=== PATIENT | female | born 2000 | race Caucasian/White ===

== ENCOUNTER 2021-05-18 07:17 | Inpatient (IN) ==
[2021-05-18] MEDS ORDERED: OXYTOCIN 30 UNITS/500 ML BAG IV PRN ×2 (11:47)
--- NOTE | 2021-05-18 11:53 | History & Physical Report ---
Date of Service May 18, 2021 Assessment & Plan (1) Supervision of normal first : Plan: Admit to L&D negative-pressure room. EFM/toco/labs. IV. OK for epidural when she desires. Discussed COVID+ test. Admission and Anticipated Discharge Date Admission Date: May 18, 2021 History of Present Illness Chief Complaint: IOL Primary Care Provider: [facility] PCP 21yo @ 41 06/28, here for IOL for postdates. Incidental finding of COVID+ on today's admission swab. Has not had symptoms, however states she had what felt like a bit of a cold last Monday for one day, did not take meds. Not vaccinated. complicated by +chlamydia, treated, then 36w retest was negative. White bulb placed last night. Allergies Allergy/AdvReac Type Severity Reaction Status Date / Time No Known Allergies Allergy Verified 05/17/21 15:05 Home Medications Medication Instructions Recorded Confirmed Type vit no.133-ferrous 1 tab PO DAILY 09/16/20 05/18/21 History fumarate 28 mg-folic acid 800 mcg tablet () Patient History Medical History History of chicken pox Ovarian cyst Varicella vaccination Surgical History No history of previous surgery Family History Mother Breast cancer Aunt Breast cancer Grandmother (Paternal) Ovarian cancer Denies family history of Prostate cancer Myocardial infarction Colorectal cancer Social History Smoking Status: Former smoker Second Hand Exposure: No; Do You Dip or Chew Tobacco: No; Hx Alcohol Use: No Hx Substance Use: No Preferred Language: Slovak Communication Ability: Effective Surgical Scrub Tech Required: No Beliefs That Will Affect Care: None marital status: Single marital status details: Junior Jackson (22) [phone] Current Living Situation: Significant Other and Other Current Living Situation Comment: Lives with significant other his mom and moms boyfriend current occupational status: employed current occupation: [employer] Feels Safe at Home: Yes Safety Concerns: Feels Safe At This Time Assistive Devices: None Review of Systems All systems reviewed & are unremarkable except as noted in HPI & below Physical Exam Physical Exam: SVE 4/50/-2, cephalic Constitutional: WD/WN, vitals as above Respiratory: normal respiratory effort, lungs clear to auscultation no respiratory distress Cardiovascular: Rate/Rhythm: regular rate and regular rhythm Gastrointestinal (Abdomen): Inspection/Auscultation: abdomen normal to inspection Percussion/Palpation: abdomen soft; abdomen nontender Gravid. No s/s chorio or abruption. Skin: no rashes, warm and dry Psychiatric: A+Ox3, euthymic affect Results & Data ([facility]) Vital Signs (Past 12 Hours) Vital Signs Temp Pulse Resp BP 05/18/21 08:17 98 H 127/71 05/18/21 08:05 36.6 C 137 H 18 117/65 05/18/21 07:57 137 H 117/65 Coding Level of Care Code None Diagnoses Supervision of normal first Z34.00
[2021-05-18] MEDS ORDERED: PENICILLIN G POTASSIUM 6 MU in DEXTROSE 5% 250 ML IV STA (11:56)
[2021-05-18 12:21] LABS: Hemoglobin 12.4 g/dL (12.0-16.0); Mean Corpuscular Hemoglobin 32.5 pg (25-34); Mean Corpuscular Hgb Conc 34.4 g/dL (32-36); Mean Corpuscular Volume 94.2 fL (80-100); Mean Platelet Volume 11.8 fL (7.4-10.4); Platelet Count 227 K/uL (130-400); RDW Coefficient of Variation 12.8 % (11.5-14.5); RDW Standard Deviation 44.3 fL (36.4-46.3); Red Blood Count 3.82 M/uL (4.2-5.4); White Blood Count 15.47 K/uL (4.8-10.8)
[2021-05-18] MEDS: LACTATED RINGER'S 1,000 ML IV PRN ×2 (12:32→16:30)
[2021-05-18] MEDS ORDERED: ePHEDrine sulfate 50 MG/ML AMP ONE (15:48)
[2021-05-18] MEDS ORDERED: fentaNYL citrate 100 MCG/2 ML VIAL ONE (15:49)
[2021-05-18] MEDS ORDERED: SODIUM CHLORIDE 0.9% INJ 10 ML VIAL ONE (15:49)
[2021-05-18] MEDS ORDERED: BUPIVACAINE 0.25% 30 ML VIAL ONE (15:49)
[2021-05-18] MEDS ORDERED: fentaNYL 2MCG/ML ROPIVACAINE 1.25MG/ML 100 ML BAG EPI ONE (15:49)
[2021-05-18] MEDS ORDERED: fentaNYL 2MCG/ML ROPIVACAINE 1.25MG/ML 100 ML BAG EPI PRN (16:02)
[2021-05-18] MEDS ORDERED: diphenhydrAMINE 50 MG/ML VIAL IV PRN (16:02)
[2021-05-18] MEDS ORDERED: ePHEDrine sulfate 50 MG/ML AMP IV PRN (16:02)
[2021-05-18] MEDS ORDERED: NALBUPHINE HCL INJ 10 MG/ML AMP IV PRN (16:02)
[2021-05-18] MEDS ORDERED: NALOXONE HCL 0.4 MG/1 ML VIAL/CARP IV PRN (16:02)
[2021-05-18] MEDS ORDERED: NALOXONE HCL 1 MG in SODIUM CHLORIDE 0.9% 1000ML 1,000 ML IV PRN (16:02)
[2021-05-18] MEDS ORDERED: ONDANSETRON INJ 2 MG/ML 2 ML VIAL IV PRN (16:02)
--- NOTE | 2021-05-18 16:03 | Anesthesiology Consultation ---
Date of Service May 18, 2021 Assessment & Plan (1) Encounter for pre-operative examination: Chart Review Chart Review: Patient NOT seen in Pre Admission Testing and Acceptable Risk for Labor Epidural Consults Requested none History Height/Weight Height: 5 ft 3 in Weight: 91.626 kg Allergies Allergy/AdvReac Type Severity Reaction Status Date / Time No Known Allergies Allergy Verified 05/17/21 15:05 Medications Home Medications Medication Instructions Recorded Confirmed Last Taken vit no.133-ferrous 1 tab PO DAILY 09/16/20 05/18/21 05/16/21 08:00 fumarate 28 mg-folic acid 800 mcg tablet () Active Medications Generic Name Dose Route Start Last Admin Trade Name Freq PRN Reason Stop Dose Admin Lactated Ringer's 1,000 mls @ 125 mls/hr 05/18/21 11:47 05/18/21 16:30 Lr IV 05/20/21 11:46 125 mls/hr .Q8H PRN Administration L&D Protocol Protocol Oxytocin 30 units in 500 mls @ 7 mls/hr 05/18/21 11:47 05/18/21 15:40 Pitocin IV 05/20/21 11:46 0.42 units/hr .Q24H PRN 7 mls/hr Labor Induction/Augmentation Titration Protocol 0.42 UNITS/HR Past Medical History Medical History History of chicken pox Ovarian cyst Varicella vaccination Exercise / Class Metabolic Activity II 4-5 Yardwork/Stairs/Walk up hill Past Family History Family History Mother Breast cancer Aunt Breast cancer Grandmother (Paternal) Ovarian cancer Denies family history of Prostate cancer Myocardial infarction Colorectal cancer Past Surgical History Surgical History No history of previous surgery Past Anesthesia History No Hx of Anesthesia Complications and No Family Hx of Anesthesia Complications History of PONV No Hx of PONV and No Hx of Motion Sickness Social History Smoking Status: Former smoker tobacco type: cigarettes Do You Dip or Chew Tobacco: No Hx Alcohol Use: No Hx Substance Use: No substance use type: does not use Physical Exam Vital Signs Last Vital Signs Temp 36.7 C 05/18/21 15:06 Pulse 93 H 05/18/21 16:57 Resp 18 05/18/21 15:06 BP 112/57 L 05/18/21 16:57 Pulse Ox 98 05/18/21 16:56 Testing Laboratory Results 05/18/21 12:01
--- NOTE | 2021-05-18 16:59 | Labor Progress Brief Note ---
Date of Service May 18, 2021 Subjective Comfortable with epidural. AROM Clear fluid. SVE 4/50/-2 Continue IOL Assessment & Plan Admission and Anticipated Discharge Date Admission Date: May 18, 2021 Results & Data ([facility]) Vital Signs (Past 12 Hours) Vital Signs Temp Pulse Resp BP Pulse Ox 05/18/21 16:57 93 H 112/57 L 05/18/21 16:56 87 98 05/18/21 16:54 96 H 135/64 05/18/21 16:51 83 99 05/18/21 16:46 106 H 99 05/18/21 16:44 76 114/58 L 05/18/21 16:41 118 H 98 05/18/21 16:40 126 H 107/63 05/18/21 16:37 107 H 117/59 L 05/18/21 16:36 88 116/63 98 05/18/21 16:33 102 H 107/58 L 05/18/21 16:32 97 H 113/57 L 05/18/21 16:31 107 H 98 05/18/21 16:29 90 129/73 05/18/21 16:28 93 H 121/67 05/18/21 16:26 95 H 126/77 99 05/18/21 16:21 102 H 98 05/18/21 16:16 105 H 98 05/18/21 16:11 93 H 95 05/18/21 16:06 87 98 05/18/21 15:40 81 118/71 05/18/21 15:06 36.7 C 18 05/18/21 14:19 85 128/76 05/18/21 11:59 86 113/58 L 05/18/21 11:58 36.7 C 18 05/18/21 08:17 98 H 127/71 05/18/21 08:05 36.6 C 137 H 18 117/65 05/18/21 07:57 137 H 117/65 Coding Level of Care Code None
[2021-05-18] MEDS: PENICILLIN G POTASSIUM 3 MU in DEXTROSE 5% 100 ML IV PRN ×2 (17:41→21:41)
[2021-05-18] MEDS ORDERED: NURSING L&D Epidural Breakthrough Pain Update ONE (21:57)
[2021-05-18] MEDS ORDERED: LIDOCAINE 2%/EPINEPHRINE 1:200,000 20 ML SDV ONE (22:04)
--- NOTE | 2021-05-18 22:23 | Communication Note ---
Date of Service: May 18, 2021 bolused 4ml of 2% lido mixed with 4ml 0.5% ropivicaine. pt on monitor. vss. pain much improved.
--- NOTE | 2021-05-18 23:29 | Labor Progress Brief Note ---
Date of Service May 18, 2021 Subjective Comfortable with redose of epidural. FHT Cat 1 [place] Q 2-3 IUPC placed. Pit at 19. SVE /-2 Assessment & Plan Admission and Anticipated Discharge Date Admission Date: May 18, 2021 Results & Data ([facility]) Vital Signs (Past 12 Hours) Vital Signs Temp Pulse Resp BP Pulse Ox 05/18/21 23:26 90 113/56 L 98 05/18/21 23:21 116 H 97 05/18/21 23:16 112 H 98 05/18/21 23:11 101 H 98 05/18/21 23:10 90 118/77 05/18/21 23:06 97 H 96 05/18/21 23:01 88 96 05/18/21 23:00 36.8 C 18 05/18/21 22:56 91 H 97 05/18/21 22:55 88 114/77 05/18/21 22:51 93 H 97 05/18/21 22:46 130 H 97 05/18/21 22:41 121 H 97 05/18/21 22:40 122 H 121/80 05/18/21 22:36 113 H 98 05/18/21 22:31 92 H 98 05/18/21 22:26 84 97 05/18/21 22:25 86 113/78 05/18/21 22:21 91 H 97 05/18/21 22:19 96 H 119/81 05/18/21 22:17 80 113/77 05/18/21 22:16 100 H 96 05/18/21 22:15 85 119/79 05/18/21 22:13 96 H 115/76 05/18/21 22:11 79 123/77 97 05/18/21 22:06 86 97 05/18/21 22:01 83 97 05/18/21 22:00 18 05/18/21 21:58 83 127/69 05/18/21 21:56 80 98 05/18/21 21:51 85 97 05/18/21 21:46 91 H 97 05/18/21 21:42 86 131/71 05/18/21 21:41 85 97 05/18/21 21:36 81 96 05/18/21 21:31 69 95 05/18/21 21:30 18 05/18/21 21:26 88 120/67 96 05/18/21 21:21 84 96 05/18/21 21:16 88 96 05/18/21 21:12 83 120/64 05/18/21 21:11 83 95 05/18/21 21:08 93 H 94 05/18/21 21:06 82 95 05/18/21 21:03 84 94 05/18/21 21:01 93 H 93 05/18/21 21:00 36.9 C 18 05/18/21 20:57 84 94 05/18/21 20:56 82 114/60 95 05/18/21 20:52 73 94 05/18/21 20:51 82 95 05/18/21 20:46 70 95 05/18/21 20:43 83 126/67 05/18/21 20:41 87 95 05/18/21 20:36 80 96 05/18/21 20:31 85 95 05/18/21 20:30 18 05/18/21 20:27 86 115/62 05/18/21 20:26 87 97 05/18/21 20:21 100 H 95 05/18/21 20:16 80 95 05/18/21 20:11 86 119/68 95 05/18/21 20:06 89 96 05/18/21 20:01 82 96 05/18/21 20:00 18 05/18/21 19:58 84 113/66 05/18/21 19:56 85 96 05/18/21 19:52 89 94 05/18/21 19:51 81 95 05/18/21 19:46 85 97 05/18/21 19:42 78 107/56 L 05/18/21 19:41 73 97 05/18/21 19:36 91 H 98 05/18/21 19:31 89 96 05/18/21 19:30 18 05/18/21 19:27 81 123/65 05/18/21 19:26 88 97 05/18/21 19:21 86 97 05/18/21 19:16 73 97 05/18/21 19:12 77 112/69 05/18/21 19:11 77 98 05/18/21 19:06 83 97 05/18/21 19:05 36.9 C 18 05/18/21 19:01 91 H 97 05/18/21 19:00 18 05/18/21 18:58 87 117/68 05/18/21 18:56 84 97 05/18/21 18:51 86 97 05/18/21 18:46 93 H 97 05/18/21 18:45 18 05/18/21 18:42 86 133/77 05/18/21 18:41 88 97 05/18/21 18:36 91 H 97 05/18/21 18:31 90 96 05/18/21 18:27 81 127/64 05/18/21 18:26 85 97 05/18/21 18:21 91 H 97 05/18/21 18:16 80 97 05/18/21 18:12 83 133/62 05/18/21 18:11 83 98 05/18/21 18:06 36.8 C 90 97 05/18/21 18:01 88 97 05/18/21 18:00 18 05/18/21 17:58 81 133/71 05/18/21 17:56 100 H 97 05/18/21 17:51 89 97 05/18/21 17:46 104 H 98 05/18/21 17:41 88 112/63 97 05/18/21 17:37 88 119/84 05/18/21 17:36 85 97 05/18/21 17:33 85 116/78 05/18/21 17:31 66 98 05/18/21 17:29 82 117/79 05/18/21 17:26 80 98 05/18/21 17:25 91 H 126/77 05/18/21 17:21 82 120/76 98 05/18/21 17:18 96 H 123/91 05/18/21 17:16 70 97 05/18/21 17:15 18 05/18/21 17:13 78 105/79 05/18/21 17:11 96 H 98 05/18/21 17:09 102 H 109/68 05/18/21 17:06 85 110/60 98 05/18/21 17:02 88 118/56 L 05/18/21 17:01 97 H 99 05/18/21 17:00 18 05/18/21 16:57 93 H 112/57 L 05/18/21 16:56 87 98 05/18/21 16:54 96 H 135/64 05/18/21 16:51 83 99 01/25/22 16:46 106 H 99 05/18/21 16:45 18 05/18/21 16:44 76 114/58 L 05/18/21 16:41 118 H 98 05/18/21 16:40 126 H 107/63 05/18/21 16:37 107 H 117/59 L 05/18/21 16:36 88 116/63 98 05/18/21 16:33 102 H 107/58 L 05/18/21 16:32 97 H 113/57 L 05/18/21 16:31 107 H 98 05/18/21 16:30 18 05/18/21 16:29 90 129/73 05/18/21 16:28 93 H 121/67 05/18/21 16:26 95 H 126/77 99 05/18/21 16:21 102 H 98 05/18/21 16:16 105 H 98 05/18/21 16:11 93 H 95 05/18/21 16:06 87 98 05/18/21 15:40 81 118/71 05/18/21 15:06 36.7 C 18 05/18/21 14:19 85 128/76 05/18/21 11:59 86 113/58 L 05/18/21 11:58 36.7 C 18 Coding Level of Care Code None
[2021-05-19] MEDS: PENICILLIN G POTASSIUM 3 MU in DEXTROSE 5% 100 ML IV PRN (01:11)
[2021-05-19] MEDS: LACTATED RINGER'S 1,000 ML IV PRN (01:43)
--- NOTE | 2021-05-19 03:31 | Labor Progress Brief Note ---
Date of Service May 19, 2021 Subjective Patient comfortable with epidural. FHT category 3 tracing - not responsive to resuscitative measures. She is having recurrent late decelerations. [place] Q 2 SVE 5/90/-2, moulding of head Given Cat 3 tracing and remote from delivery, I recommended that we proceed to section. Patient is agreeable. Assessment & Plan Admission and Anticipated Discharge Date Admission Date: May 18, 2021 Results & Data ([facility]) Vital Signs (Past 12 Hours) Vital Signs Temp Pulse Resp BP Pulse Ox 05/19/21 03:26 135 H 99 05/19/21 03:21 122 H 99 05/19/21 03:19 107 H 115/73 05/19/21 03:16 96 H 97 05/19/21 03:11 94 H 97 05/19/21 03:06 94 H 97 05/19/21 03:03 95 H 112/59 L 05/19/21 03:01 98 H 97 05/19/21 03:00 18 05/19/21 02:56 95 H 97 05/19/21 02:51 94 H 97 05/19/21 02:49 95 H 107/59 L 05/19/21 02:46 96 H 97 05/19/21 02:41 95 H 97 05/19/21 02:36 99 H 97 05/19/21 02:33 98 H 105/59 L 05/19/21 02:31 96 H 97 05/19/21 02:30 18 05/19/21 02:26 101 H 98 05/19/21 02:21 102 H 98 05/19/21 02:18 97 H 109/65 05/19/21 02:16 103 H 98 05/19/21 02:11 102 H 98 05/19/21 02:06 98 H 98 05/19/21 02:03 96 H 107/63 05/19/21 02:01 97 H 111/67 99 05/19/21 02:00 37.1 C 18 05/19/21 01:59 96 H 113/68 05/19/21 01:57 93 H 113/70 05/19/21 01:56 90 99 05/19/21 01:55 90 112/66 05/19/21 01:53 89 110/67 05/19/21 01:51 88 99 05/19/21 01:46 88 100 05/19/21 01:41 93 H 115/74 96 05/19/21 01:36 98 H 98 05/19/21 01:31 96 H 96 05/19/21 01:30 18 05/19/21 01:26 95 H 95 05/19/21 01:25 93 H 119/71 05/19/21 01:21 103 H 95 05/19/21 01:16 98 H 93 05/19/21 01:11 93 H 100/59 L 94 05/19/21 01:10 104 H 94 05/19/21 01:06 96 H 92 05/19/21 01:05 102 H 94 05/19/21 01:01 37.1 C 96 H 92 05/19/21 01:00 18 05/19/21 00:56 90 91 05/19/21 00:55 104 H 116/59 L 05/19/21 00:51 99 H 93 05/19/21 00:46 92 H 93 05/19/21 00:41 104 H 94 05/19/21 00:40 106 H 110/63 05/19/21 00:36 103 H 94 05/19/21 00:31 100 H 94 05/19/21 00:30 18 05/19/21 00:26 106 H 94 05/19/21 00:25 97 H 110/64 05/19/21 00:21 96 H 94 05/19/21 00:16 91 H 95 05/19/21 00:15 98 H 94 05/19/21 00:11 92 H 113/68 96 05/19/21 00:06 92 H 97 05/19/21 00:01 88 96 05/19/21 00:00 18 05/18/21 23:56 87 96 05/18/21 23:55 90 117/74 05/18/21 23:51 87 96 05/18/21 23:46 91 H 97 05/18/21 23:41 85 97 05/18/21 23:40 101 H 111/73 05/18/21 23:36 80 96 05/18/21 23:31 71 97 05/18/21 23:26 90 113/56 L 98 05/18/21 23:21 116 H 97 05/18/21 23:16 112 H 98 05/18/21 23:11 101 H 98 05/18/21 23:10 90 118/77 05/18/21 23:06 97 H 96 05/18/21 23:01 88 96 05/18/21 23:00 36.8 C 18 05/18/21 22:56 91 H 97 05/18/21 22:55 88 114/77 05/18/21 22:51 93 H 97 05/18/21 22:46 130 H 97 05/18/21 22:41 121 H 97 05/18/21 22:40 122 H 121/80 05/18/21 22:36 113 H 98 05/18/21 22:31 92 H 98 05/18/21 22:26 84 97 05/18/21 22:25 86 113/78 05/18/21 22:21 91 H 97 05/18/21 22:19 96 H 119/81 05/18/21 22:17 80 113/77 05/18/21 22:16 100 H 96 05/18/21 22:15 85 119/79 05/18/21 22:13 96 H 115/76 05/18/21 22:11 79 123/77 97 05/18/21 22:06 86 97 05/18/21 22:01 83 97 05/18/21 22:00 18 05/18/21 21:58 83 127/69 05/18/21 21:56 80 98 05/18/21 21:51 85 97 05/18/21 21:46 91 H 97 05/18/21 21:42 86 131/71 05/18/21 21:41 85 97 05/18/21 21:36 81 96 05/18/21 21:31 69 95 05/18/21 21:30 18 05/18/21 21:26 88 120/67 96 05/18/21 21:21 84 96 05/18/21 21:16 88 96 05/18/21 21:12 83 120/64 05/18/21 21:11 83 95 05/18/21 21:08 93 H 94 05/18/21 21:06 82 95 05/18/21 21:03 84 94 05/18/21 21:01 93 H 93 05/18/21 21:00 36.9 C 18 05/18/21 20:57 84 94 05/18/21 20:56 82 114/60 95 05/18/21 20:52 73 94 05/18/21 20:51 82 95 05/18/21 20:46 70 95 05/18/21 20:43 83 126/67 05/18/21 20:41 87 95 05/18/21 20:36 80 96 05/18/21 20:31 85 95 05/18/21 20:30 18 05/18/21 20:27 86 115/62 05/18/21 20:26 87 97 05/18/21 20:21 100 H 95 05/18/21 20:16 80 95 05/18/21 20:11 86 119/68 95 05/18/21 20:06 89 96 05/18/21 20:01 82 96 05/18/21 20:00 18 05/18/21 19:58 84 113/66 05/18/21 19:56 85 96 05/18/21 19:52 89 94 05/18/21 19:51 81 95 05/18/21 19:46 85 97 05/18/21 19:42 78 107/56 L 05/18/21 19:41 73 97 05/18/21 19:36 91 H 98 05/18/21 19:31 89 96 05/18/21 19:30 18 05/18/21 19:27 81 123/65 05/18/21 19:26 88 97 05/18/21 19:21 86 97 05/18/21 19:16 73 97 05/18/21 19:12 77 112/69 05/18/21 19:11 77 98 05/18/21 19:06 83 97 05/18/21 19:05 36.9 C 18 05/18/21 19:01 91 H 97 05/18/21 19:00 18 05/18/21 18:58 87 117/68 05/18/21 18:56 84 97 05/18/21 18:51 86 97 05/18/21 18:46 93 H 97 05/18/21 18:45 18 05/18/21 18:42 86 133/77 05/18/21 18:41 88 97 05/18/21 18:36 91 H 97 05/18/21 18:31 90 96 05/18/21 18:27 81 127/64 05/18/21 18:26 85 97 05/18/21 18:21 91 H 97 05/18/21 18:16 80 97 05/18/21 18:12 83 133/62 05/18/21 18:11 83 98 05/18/21 18:06 36.8 C 90 97 05/18/21 18:01 88 97 05/18/21 18:00 18 05/18/21 17:58 81 133/71 05/18/21 17:56 100 H 97 05/18/21 17:51 89 97 05/18/21 17:46 104 H 98 05/18/21 17:41 88 112/63 97 05/18/21 17:37 88 119/84 05/18/21 17:36 85 97 05/18/21 17:33 85 116/78 05/18/21 17:31 66 98 05/18/21 17:29 82 117/79 05/18/21 17:26 80 98 05/18/21 17:25 91 H 126/77 05/18/21 17:21 82 120/76 98 05/18/21 17:18 96 H 123/91 05/18/21 17:16 70 97 05/18/21 17:15 18 05/18/21 17:13 78 105/79 05/18/21 17:11 96 H 98 05/18/21 17:09 102 H 109/68 05/18/21 17:06 85 110/60 98 05/18/21 17:02 88 118/56 L 05/18/21 17:01 97 H 99 05/18/21 17:00 18 05/18/21 16:57 93 H 112/57 L 05/18/21 16:56 87 98 05/18/21 16:54 96 H 135/64 05/18/21 16:51 83 99 05/18/21 16:46 106 H 99 05/18/21 16:45 18 05/18/21 16:44 76 114/58 L 05/18/21 16:41 118 H 98 05/18/21 16:40 126 H 107/63 05/18/21 16:37 107 H 117/59 L 05/18/21 16:36 88 116/63 98 05/18/21 16:33 102 H 107/58 L 05/18/21 16:32 97 H 113/57 L 05/18/21 16:31 107 H 98 05/18/21 16:30 18 05/18/21 16:29 90 129/73 05/18/21 16:28 93 H 121/67 05/18/21 16:26 95 H 126/77 99 05/18/21 16:21 102 H 98 05/18/21 16:16 105 H 98 05/18/21 16:11 93 H 95 05/18/21 16:06 87 98 05/18/21 15:40 81 118/71 Coding Level of Care Code None
--- NOTE | 2021-05-19 03:32 | History & Physical Bridge Note ---
Date of Service May 19, 2021 History & Physical Bridge Note I have examined the patient, reviewed the History & Physical and in the interval since the performance of the History & Physical I have noted the following changes of clinical significance: I have discussed consent with patient for section. Questions answered, informed consent obtained. Will proceed to OR for section for nonreassuring heart tracing.
[2021-05-19] MEDS ORDERED: LACTATED RINGER'S 1,000 ML IV SCH ×2 (03:45→06:08)
[2021-05-19] MEDS ORDERED: PHENYLEPHRINE 100MCG/ML 5ML SYR ONE (03:56)
[2021-05-19] MEDS ORDERED: ONDANSETRON INJ 2 MG/ML 2 ML VIAL ONE (03:56)
[2021-05-19] MEDS ORDERED: OXYTOCIN 10 UNITS/ML 10ML VIAL ONE (03:56)
[2021-05-19] MEDS ORDERED: LIDOCAINE 2%/EPINEPHRINE 1:200,000 20 ML SDV ONE (03:56)
[2021-05-19] MEDS ORDERED: ePHEDrine sulfate 50 MG/ML SYR ONE (03:56)
[2021-05-19] MEDS ORDERED: CITRIC ACID/SODIUM CITRATE 15 ML UDC ONE (03:58)
[2021-05-19] MEDS ORDERED: MoRPHine SULFATE PF 1 MG/ML 10 ML AMP/VIAL ONE (03:59)
[2021-05-19] MEDS ORDERED: KETAMINE 50 MG/5 ML SYRINGE ONE (04:02)
[2021-05-19] MEDS ORDERED: MIDAZOLAM HCL 1 MG/ML 2ML VIAL ONE (04:02)
--- NOTE | 2021-05-19 05:52 | Operative Report ---
PG Post Operative Report Pre & Post Diagnosis Operation Date: 05/19/21 03:50 Pre: Nonreassuring heart tracing Post: same I identified the patient and participated in the time-out.: Yes Procedure Operation Date: 05/19/21 03:50 Primary low transverse section Surgeon Beatriz Choi, DO Cooperative Manager Chyna Nagy RN Estimated Blood Loss 750 Findings Consistent with Post-Op Diagnosis Viable male , apgars/weight pending - please see nursery charting. Normal appearing uterus, tubes, ovaries. Specimens placenta, cord blood, cord gas Drains ortega clear yellow Anesthesia Type Labor Epidural Complications none Disposition Accompanied Patient To Recovery: No Disposition: Recovery Room Indications 21yo @ 40 4/7, undergoing IOL for postdates , developed nonreassuring heart tracing with recurrent late decelerations nonresponsive to resuscitative measures. Cervix at that time still 5cm, remote from delivery. Description of Procedure The patient was seen in her labor and delivery room, risks benefits and alternatives to surgery were reviewed. Informed consent obtained. Questions were answered. She was taken to the operating room, spinal anesthesia was administered. She was then prepared and draped in the usual sterile fashion in the supine position with a leftward tilt. Timeout was confirmed. A Pfannenstiel skin incision was made with a scalpel, and carried through to the underlying layer of fascia. Fascia was nicked at midline, and this incision was extended bilaterally. The superior aspect of the fascial incision was grasped with Florin clamps x2, elevated off the underlying rectus abdominis muscles, and dissected sharply and bluntly. In similar fashion, the inferior aspect of the fascial incision was dissected. The rectus abdominis muscles were , and the peritoneum was entered bluntly digitally. This was extended bilaterally. The bladder flap was taken down carefully using Metzenbaum scissors. Using a new scalpel, a low transverse uterine incision was created. Meconium stained amniotic fluid noted. The infant was delivered from a cephalic presentation. The head delivered, followed by shoulders and body. The cord was doubly clamped and cut, and the was handed off to the waiting language interpreter. A segment was retained for cord gases. Cord blood was obtained. The placenta was delivered spontaneously intact. The uterus was exteriorized, and cleared of all clots and debris. The hysterotomy incision was reapproximated using 0 Vicryl in a running locked stitch. A second layer of the same suture was used to imbricate the incision. Posterior uterus was evaluated and normal. The uterus was returned to the abdomen, and gutters were cleared of clots and debris. Excellent hemostasis was observed. The fascial incision was reapproximated using 0 Vicryl in a running stitch. The subcutaneous tissue was irrigated, and reapproximated using 2-0 plain gut in a running stitch. The skin was reapproximated using 4-0 Vicryl in a running subcuticular stitch. Steri-Strips and a bandage were applied. The patient tolerated the procedure well, and will be taken to the recovery area in stable and good condition. Instrument/sponge/needle count correct x 2. I attest to the content of the Intraoperative Record and any orders documented therein. Any exceptions are noted below. OB Procedure Charges 14476
--- NOTE | 2021-05-19 05:59 | Anesthesia Procedure Note ---
Date of Service May 19, 2021 Anesthesia Post Epidural Note Vital Signs Vital Signs: Temp Pulse Resp BP Pulse Ox 37.1 C 99 H 20 111/64 98 05/19/21 02:00 05/19/21 04:11 05/19/21 03:30 05/19/21 04:03 05/19/21 04:11 Pain Intensity Bilateral Abdomen: Pain Intensity: 6 Notes Mental Status: alert / awake / arousable and participated in evaluation Patient Amnestic to Procedure: No Nausea / Vomiting: adequately controlled Pain: adequately controlled Airway Patency, RR, SpO2: stable & adequate BP & HR: stable & adequate Hydration State: stable & adequate Neuraxial Anesthesia: was administered and sensory block is resolving Anesthetic Complications: no major complications apparent and Pt Satisfied with anesthetic care Epidural: Removed without complications and With tip intact
--- NOTE | 2021-05-19 05:59 | Anesthesiology Progress Note ---
Date of Service May 19, 2021 Anesthesia Post Procedure Vital Signs Vital Signs: Temp Pulse Resp BP Pulse Ox 05/19/21 04:11 99 H 98 05/19/21 04:06 95 H 97 05/19/21 04:03 100 H 111/64 05/19/21 04:01 104 H 98 05/19/21 03:57 110 H 93 05/19/21 03:56 107 H 98 05/19/21 03:51 106 H 97 05/19/21 03:48 115 H 102/68 05/19/21 03:46 106 H 98 05/19/21 03:41 119 H 97 05/19/21 03:36 120 H 100 05/19/21 03:33 114 H 108/70 05/19/21 03:31 132 H 100 05/19/21 03:30 20 05/19/21 03:26 135 H 99 05/19/21 03:21 122 H 99 05/19/21 03:19 107 H 115/73 05/19/21 03:16 96 H 97 05/19/21 03:11 94 H 97 05/19/21 03:06 94 H 97 05/19/21 03:03 95 H 112/59 L 05/19/21 03:01 98 H 97 05/19/21 03:00 18 05/19/21 02:56 95 H 97 05/19/21 02:51 94 H 97 05/19/21 02:49 95 H 107/59 L 05/19/21 02:46 96 H 97 05/19/21 02:41 95 H 97 05/19/21 02:36 99 H 97 05/19/21 02:33 98 H 105/59 L 05/19/21 02:31 96 H 97 05/19/21 02:30 18 05/19/21 02:26 101 H 98 05/19/21 02:21 102 H 98 05/19/21 02:18 97 H 109/65 05/19/21 02:16 103 H 98 05/19/21 02:11 102 H 98 05/19/21 02:06 98 H 98 05/19/21 02:03 96 H 107/63 05/19/21 02:01 97 H 111/67 99 05/19/21 02:00 37.1 C 18 05/19/21 01:59 96 H 113/68 05/19/21 01:57 93 H 113/70 05/19/21 01:56 90 99 05/19/21 01:55 90 112/66 05/19/21 01:53 89 110/67 05/19/21 01:51 88 99 05/19/21 01:46 88 100 05/19/21 01:41 93 H 115/74 96 05/19/21 01:36 98 H 98 05/19/21 01:31 96 H 96 05/19/21 01:30 18 05/19/21 01:26 95 H 95 05/19/21 01:25 93 H 119/71 05/19/21 01:21 103 H 95 05/19/21 01:16 98 H 93 05/19/21 01:11 93 H 100/59 L 94 05/19/21 01:10 104 H 94 05/19/21 01:06 96 H 92 05/19/21 01:05 102 H 94 05/19/21 01:01 37.1 C 96 H 92 05/19/21 01:00 18 05/19/21 00:56 90 91 05/19/21 00:55 104 H 116/59 L 05/19/21 00:51 99 H 93 05/19/21 00:46 92 H 93 05/19/21 00:41 104 H 94 05/19/21 00:40 106 H 110/63 05/19/21 00:36 103 H 94 05/19/21 00:31 100 H 94 05/19/21 00:30 18 05/19/21 00:26 106 H 94 05/19/21 00:25 97 H 110/64 05/19/21 00:21 96 H 94 05/19/21 00:16 91 H 95 05/19/21 00:15 98 H 94 05/19/21 00:11 92 H 113/68 96 05/19/21 00:06 92 H 97 05/19/21 00:01 88 96 05/19/21 00:00 18 05/18/21 23:56 87 96 05/18/21 23:55 90 117/74 05/18/21 23:51 87 96 05/18/21 23:46 91 H 97 05/18/21 23:41 85 97 05/18/21 23:40 101 H 111/73 05/18/21 23:36 80 96 05/18/21 23:31 71 97 05/18/21 23:26 90 113/56 L 98 05/18/21 23:21 116 H 97 05/18/21 23:16 112 H 98 05/18/21 23:11 101 H 98 05/18/21 23:10 90 118/77 05/18/21 23:06 97 H 96 05/18/21 23:01 88 96 05/18/21 23:00 36.8 C 18 05/18/21 22:56 91 H 97 05/18/21 22:55 88 114/77 05/18/21 22:51 93 H 97 05/18/21 22:46 130 H 97 05/18/21 22:41 121 H 97 05/18/21 22:40 122 H 121/80 05/18/21 22:36 113 H 98 05/18/21 22:31 92 H 98 05/18/21 22:26 84 97 05/18/21 22:25 86 113/78 05/18/21 22:21 91 H 97 05/18/21 22:19 96 H 119/81 05/18/21 22:17 80 113/77 05/18/21 22:16 100 H 96 05/18/21 22:15 85 119/79 05/18/21 22:13 96 H 115/76 05/18/21 22:11 79 123/77 97 05/18/21 22:06 86 97 05/18/21 22:01 83 97 05/18/21 22:00 18 05/18/21 21:58 83 127/69 05/18/21 21:56 80 98 05/18/21 21:51 85 97 05/18/21 21:46 91 H 97 05/18/21 21:42 86 131/71 05/18/21 21:41 85 97 05/18/21 21:36 81 96 05/18/21 21:31 69 95 05/18/21 21:30 18 05/18/21 21:26 88 120/67 96 05/18/21 21:21 84 96 05/18/21 21:16 88 96 05/18/21 21:12 83 120/64 05/18/21 21:11 83 95 05/18/21 21:08 93 H 94 05/18/21 21:06 82 95 05/18/21 21:03 84 94 05/18/21 21:01 93 H 93 05/18/21 21:00 36.9 C 18 05/18/21 20:57 84 94 05/18/21 20:56 82 114/60 95 05/18/21 20:52 73 94 05/18/21 20:51 82 95 05/18/21 20:46 70 95 05/18/21 20:43 83 126/67 05/18/21 20:41 87 95 05/18/21 20:36 80 96 05/18/21 20:31 85 95 05/18/21 20:30 18 05/18/21 20:27 86 115/62 05/18/21 20:26 87 97 05/18/21 20:21 100 H 95 05/18/21 20:16 80 95 05/18/21 20:11 86 119/68 95 05/18/21 20:06 89 96 05/18/21 20:01 82 96 05/18/21 20:00 18 05/18/21 19:58 84 113/66 05/18/21 19:56 85 96 05/18/21 19:52 89 94 05/18/21 19:51 81 95 05/18/21 19:46 85 97 05/18/21 19:42 78 107/56 L 05/18/21 19:41 73 97 05/18/21 19:36 91 H 98 05/18/21 19:31 89 96 05/18/21 19:30 18 05/18/21 19:27 81 123/65 05/18/21 19:26 88 97 05/18/21 19:21 86 97 05/18/21 19:16 73 97 05/18/21 19:12 77 112/69 05/18/21 19:11 77 98 05/18/21 19:06 83 97 05/18/21 19:05 36.9 C 18 05/18/21 19:01 91 H 97 05/18/21 19:00 18 05/18/21 18:58 87 117/68 05/18/21 18:56 84 97 05/18/21 18:51 86 97 05/18/21 18:46 93 H 97 05/18/21 18:45 18 05/18/21 18:42 86 133/77 05/18/21 18:41 88 97 05/18/21 18:36 91 H 97 05/18/21 18:31 90 96 05/18/21 18:27 81 127/64 05/18/21 18:26 85 97 05/18/21 18:21 91 H 97 05/18/21 18:16 80 97 05/18/21 18:12 83 133/62 05/18/21 18:11 83 98 05/18/21 18:06 36.8 C 90 97 05/18/21 18:01 88 97 05/18/21 18:00 18 05/18/21 17:58 81 133/71 05/18/21 17:56 100 H 97 05/18/21 17:51 89 97 05/18/21 17:46 104 H 98 05/18/21 17:41 88 112/63 97 05/18/21 17:37 88 119/84 05/18/21 17:36 85 97 05/18/21 17:33 85 116/78 05/18/21 17:31 66 98 05/18/21 17:29 82 117/79 05/18/21 17:26 80 98 05/18/21 17:25 91 H 126/77 05/18/21 17:21 82 120/76 98 05/18/21 17:18 96 H 123/91 05/18/21 17:16 70 97 05/18/21 17:15 18 05/18/21 17:13 78 105/79 05/18/21 17:11 96 H 98 05/18/21 17:09 102 H 109/68 05/18/21 17:06 85 110/60 98 05/18/21 17:02 88 118/56 L 05/18/21 17:01 97 H 99 05/18/21 17:00 18 05/18/21 16:57 93 H 112/57 L 05/18/21 16:56 87 98 05/18/21 16:54 96 H 135/64 05/18/21 16:51 83 99 05/18/21 16:46 106 H 99 05/18/21 16:45 18 05/18/21 16:44 76 114/58 L 05/18/21 16:41 118 H 98 05/18/21 16:40 126 H 107/63 05/18/21 16:37 107 H 117/59 L 05/18/21 16:36 88 116/63 98 05/18/21 16:33 102 H 107/58 L 05/18/21 16:32 97 H 113/57 L 05/18/21 16:31 107 H 98 05/18/21 16:30 18 05/18/21 16:29 90 129/73 05/18/21 16:28 93 H 121/67 05/18/21 16:26 95 H 126/77 99 05/18/21 16:21 102 H 98 05/18/21 16:16 105 H 98 05/18/21 16:11 93 H 95 05/18/21 16:06 87 98 05/18/21 15:40 81 118/71 05/18/21 15:06 36.7 C 18 05/18/21 14:19 85 128/76 05/18/21 11:59 86 113/58 L 05/18/21 11:58 36.7 C 18 05/18/21 08:17 98 H 127/71 05/18/21 08:05 36.6 C 137 H 18 117/65 05/18/21 07:57 137 H 117/65 Pain Intensity Bilateral Abdomen: Pain Intensity: 6 Transfer of Care Handoff Completed per policy Notes Mental Status: alert / awake / arousable and participated in evaluation Patient Amnestic to Procedure: No Nausea / Vomiting: adequately controlled Pain: adequately controlled Airway Patency, RR, SpO2: stable & adequate BP & HR: stable & adequate Hydration State: stable & adequate Neuraxial Anesthesia: was administered and sensory block is resolving Anesthetic Complications: no major complications apparent and Pt Satisfied with anesthetic care
[2021-05-19] MEDS ORDERED: ePHEDrine sulfate 50 MG/ML AMP IV PRN (06:00)
[2021-05-19] MEDS ORDERED: NO NARCOTICS OR SEDATIVES SCH (06:00)
[2021-05-19] MEDS ORDERED: MoRPHine SULFATE 2 MG/ML CARP IV PRN (06:00)
[2021-05-19] MEDS ORDERED: NALOXONE HCL 0.08 MG in SYRINGE 1.8 ML IV PRN (06:00)
[2021-05-19] MEDS ORDERED: ONDANSETRON INJ 2 MG/ML 2 ML VIAL IV PRN (06:00)
[2021-05-19] MEDS ORDERED: ceFAZolin 2000MG 2,000 MG/15 ML SYR IV SCH (06:00)
[2021-05-19] MEDS ORDERED: NALOXONE HCL 1 MG in SODIUM CHLORIDE 0.9% 1000ML 1,000 ML IV PRN (06:00)
[2021-05-19] MEDS ORDERED: NALBUPHINE HCL INJ 10 MG/ML AMP IV PRN (06:00)
[2021-05-19] MEDS ORDERED: diphenhydrAMINE 50 MG/ML VIAL IV PRN (06:00)
[2021-05-19] MEDS ORDERED: LACTATED RINGER'S 500 ML IV PRN (06:00)
[2021-05-19] MEDS ORDERED: PROMETHAZINE HCL 6.25 MG in SODIUM CHLORIDE 0.9% 50 ML IV PRN (06:00)
[2021-05-19] MEDS ORDERED: DC INTRASPINAL MORPHINE SCH (06:00)
[2021-05-19] MEDS ORDERED: MoRPHine SULFATE PF 1 MG/ML 10 ML AMP/VIAL EPI ONE (06:00)
[2021-05-19] MEDS ORDERED: NALOXONE HCL 0.4 MG/1 ML VIAL/CARP IV PRN (06:00)
[2021-05-19] MEDS ORDERED: SODIUM CHLORIDE 0.9% 1000ML 1,000 ML IV SCH (06:00)
[2021-05-19] MEDS ORDERED: CITRIC ACID/SODIUM CITRATE 15 ML UDC PO SCH (06:00)
[2021-05-19] MEDS ORDERED: SUPERCREAM 0.870% 15 GM JAR EXT PRN (06:08)
[2021-05-19] MEDS ORDERED: BENZOCAINE 20% AER SPR 82.5 GM CAN EXT PRN (06:08)
[2021-05-19] MEDS ORDERED: DIPHTHERIA/TETANUS/PERTUSSIS 0.5 ML SYR/VIAL IM ONE (06:08)
[2021-05-19] MEDS ORDERED: SENNA 8.6 MG TAB PO PRN (06:08)
[2021-05-19] MEDS ORDERED: HYDROCORTISONE ACETATE 25 MG SUPP PR PRN (06:08)
[2021-05-19] MEDS ORDERED: MAGNESIUM HYDROXIDE SUSP 30 ML UDC PO PRN (06:08)
[2021-05-19] MEDS: KETOROLAC 30 MG/ML VIAL IV PRN ×2 (06:16→23:34)
[2021-05-19] MEDS ORDERED: OXYTOCIN 30 UNITS in LACTATED RINGER'S 1,000 ML IV SCH (06:30)
[2021-05-19] MEDS ORDERED: NON-FORMULARY MEDICATION (Pnv133-Ferrous Fumarate-Fa [Prenatal] 28-800 mg-mcg Tablet) PO SCH (09:00)
[2021-05-19] MEDS: PRENATAL VITAMIN 1 TAB PO SCH (09:53)
[2021-05-19] MEDS: SIMETHICONE 80 MG CHEW PO SCH ×4 (09:53→20:53)
[2021-05-19] MEDS: DOCUSATE SODIUM 100 MG CAP PO SCH ×2 (09:54→19:16)
[2021-05-19] MEDS: FERROUS SULFATE 325 MG TAB PO SCH (09:54)
[2021-05-20] MEDS ORDERED: ONDANSETRON INJ 2 MG/ML 2 ML VIAL IV PRN
[2021-05-20] MEDS ORDERED: diphenhydrAMINE Capsule 25 MG CAP PO PRN
[2021-05-20] MEDS ORDERED: oxyCODONE/ACETAMINOPHEN 5mg/325mg TAB PO PRN
[2021-05-20] MEDS ORDERED: diphenhydrAMINE 50 MG/ML VIAL IV PRN
[2021-05-20] MEDS ORDERED: KETOROLAC 30 MG/ML VIAL IV PRN
[2021-05-20] MEDS ORDERED: PROMETHAZINE HCL 25 MG in SODIUM CHLORIDE 0.9% 50 ML IV PRN
--- NOTE | 2021-05-20 06:50 | Obstetrical Progress Note ---
Date of Service May 20, 2021 Assessment & Plan (1) S/P section: Doing well. continue postop day 1 activities. No issues from a covid standpoint. baby doing well. Day #:: 1 Subjective Ambulation: ambulating normally Voiding: no voiding problems Passing Gas:: Yes Diet Tolerance:: regular diet Lochia:: Small Feeding Type:: breast feeding Notes her pain is well controlled. Physical Exam Constitutional WD/WN, vitals as above Cardiovascular Extremities: no calf tenderness and no edema Gastrointestinal (Abdomen) soft, nd, appropriately tender at u incision c/d/i Psychiatric A+Ox3, euthymic affect Results & Data ([facility]) Vital Signs (Past 12 Hours) Vital Signs Temp Pulse Resp BP Pulse Ox 05/20/21 03:49 36.5 C 96 H 16 105/72 96 05/19/21 23:53 36.7 C 115 H 17 109/69 96 05/19/21 23:40 16 96 05/19/21 22:40 18 94 05/19/21 21:40 18 94 05/19/21 20:40 16 95 05/19/21 20:30 36.9 C 115 H 16 123/75 95 05/19/21 19:18 18 95
[2021-05-20 07:14] LABS: Basophils # (auto) 0.01 K/uL (0-0.2); Basophils % (auto) 0.1 %; Eosinophils # (auto) 0.04 K/uL (0-0.5); Eosinophils % (auto) 0.3 %; Hematocrit (blood only) 28.2 % (37-47); Hemoglobin 9.8 g/dL (12.0-16.0); Immature Granulocytes # (auto) 0.05 K/uL (0.00-0.02); Immature Granulocytes % (auto) 0.4 %; Lymphocytes # (auto) 1.39 K/uL (1.2-3.4); Lymphocytes % (auto) 10.3 %; Mean Corpuscular Hemoglobin 32.9 pg (25-34); Mean Corpuscular Hgb Conc 34.8 g/dL (32-36); Mean Corpuscular Volume 94.6 fL (80-100); Mean Platelet Volume 10.9 fL (7.4-10.4); Neutrophils # (auto) 11.14 K/uL (1.4-6.5); Neutrophils % (auto) 82.9 %; Platelet Count 180 K/uL (130-400); RDW Coefficient of Variation 13.1 % (11.5-14.5); RDW Standard Deviation 45.1 fL (36.4-46.3); Red Blood Count 2.98 M/uL (4.2-5.4); White Blood Count 13.43 K/uL (4.8-10.8)
[2021-05-20] MEDS: IBUPROFEN 600 MG TAB PO PRN ×3 (07:50→20:09)
[2021-05-20] MEDS: DOCUSATE SODIUM 100 MG CAP PO SCH ×2 (07:50→20:08)
[2021-05-20] MEDS: FERROUS SULFATE 325 MG TAB PO SCH (07:51)
[2021-05-20] MEDS: PRENATAL VITAMIN 1 TAB PO SCH (07:51)
[2021-05-20] MEDS: SIMETHICONE 80 MG CHEW PO SCH ×4 (07:51→20:09)
[2021-05-20] MEDS ORDERED: bisacodyL 5 MG TABEC PO SCH (20:00)
[2021-05-21] MEDS ORDERED: bisacodyL 10 MG SUPP PR PRN
[2021-05-21] MEDS: IBUPROFEN 600 MG TAB PO PRN (06:35)
--- NOTE | 2021-05-21 07:10 | Obstetrical Progress Note ---
Date of Service May 21, 2021 Assessment & Plan (1) Encounter for care and examination after delivery: 21yo day 2 s/p pLTCS. Doing well. Mild COVID symptoms. Stable for discharge Subjective Ambulation: ambulating normally Voiding: no voiding problems Passing Gas:: Yes Diet Tolerance:: regular diet Lochia:: Moderate Feeding Type:: breast feeding Physical Exam Constitutional WD/WN, vitals as above Respiratory normal respiratory effort; no respiratory distress and no labored breathing Gastrointestinal (Abdomen) Inspection/Auscultation: abdomen normal to inspection; abdomen not distended Percussion/Palpation: abdomen soft; abdomen nontender, no guarding and abdomen not rigid Incision: C/D/I Genitourinary OB Exam Abdomen: + fundal height Fundus: + firm and + relation to umbilicus (Below); not tender or not boggy Results & Data ([facility]) Vital Signs (Past 12 Hours) Vital Signs Temp Pulse Resp BP Pulse Ox 05/20/21 22:20 36.6 C 109 H 18 118/80 05/20/21 20:10 36.8 C 107 H 18 113/76 98
[2021-05-21] MEDS: SIMETHICONE 80 MG CHEW PO SCH (07:29)
[2021-05-21] MEDS: DOCUSATE SODIUM 100 MG CAP PO SCH (07:29)
[2021-05-21] MEDS: FERROUS SULFATE 325 MG TAB PO SCH (07:29)
[2021-05-21] MEDS: PRENATAL VITAMIN 1 TAB PO SCH (07:29)
[2021-05-21 07:51] LABS: Hematocrit (blood only) 29.1 % (37-47); Hemoglobin 9.9 g/dL (12.0-16.0)
--- NOTE | 2021-05-29 20:47 | Discharge Summary ---
Date of Service May 29, 2021 Admission HPI Per Admitting Provider 21yo @ 41 06/28, here for IOL for postdates. Incidental finding of COVID+ on today's admission swab. Has not had symptoms, however states she had what felt like a bit of a cold last Monday for one day, did not take meds. Not vaccinated. complicated by +chlamydia, treated, then 36w retest was negative. White bulb placed last night. Discharge Data Procedures Performed Operation Date: 05/19/21 03:50 <No data on this case meets the specified criteria> Operation Date: 05/19/21 03:50 Actual Procedures p Section in OR(Bilateral) - Beatriz Choi, Hospital Course (1) Encounter for care and examination after delivery: IOL postdates, delivery via primary low transverse , DC home POD2. Please see chart for further details of care. Coding Level of Care Code None Diagnoses Encounter for care and examination after delivery Z39.2
== END 2021-05-21 09:15 | disposition home or self-care (01) | DRG 786 ==
LOC: 4S1 07:48 → 4W 13:19 → 2S 05-19 06:40 → 4N 05-19 16:33